=== PATIENT | female | born 1940 | race Caucasian/White ===

== ENCOUNTER 2021-08-12 00:23 | Emergency (ER) | payer MEDICARE, OTHER ==
[~2021-08-12] VITALS: Ht 162.6 cm; Wt 73.0 kg
[~2021-08-12 00:23] MED LIST: ASPI-1073 PO; BUDE6HFA IH; EZET1TAB6 PO; ISOS1POW PO; OMEP20CA4 PO; PREDNISONE PO
[2021-08-12] MEDS ORDERED: ACETAMINOPHEN WITH CODEINE 300/30MG TABLET PO STA (00:48)
[2021-08-12] MEDS ORDERED: ONDANSETRON 4MG ODT PO STA ×2 (00:48→06:35)
[2021-08-12] MEDS ORDERED: SODIUM CHLORIDE 0.9% 1,000 ML IV ONE (01:00)
[2021-08-12 01:33] LABS: BASOPHILS % 0.4 % (0.0-2.0); EOSINOPHILS % 2.6 % (0.0-5.0); HEMATOCRIT. 34.9 % (36.0-48.0); HEMOGLOBIN. 11.7 g/dL (12.0-16.0); LYMPHOCYTES % 29.4 % (20.0-50.0); MEAN CORPUSCULAR HEMOGLOBIN 28.1 pg (28.0-32.0); MEAN CORPUSCULAR VOLUME 83.9 fL (81.0-99.0); MONOCYTES % 6.1 % (2.0-8.0); NEUTROPHILS % 61.5 % (40.0-76.0); PLATELET 238 x1000/uL (130-400); RED BLOOD CELL COUNT 4.16 mill/uL (4.2-5.4); RED CELL DISTRIBUTION WIDTH 13.1 % (11.6-14.6)
[2021-08-12 01:54] LABS: CHLORIDE 104 mEq/L (98-107)
[2021-08-12] MEDS ORDERED: IOHEXOL-300 100 ML BOTTLE ONE (08:25)
[2021-08-12] MEDS ORDERED: KETOROLAC 15MG/ML VIAL IV ONE (08:30)
[2021-08-12 08:44] VITALS: BP 106/84
== END 2021-08-12 09:24 | disposition home or self-care (01) ==
LOC: ER 00:23
DX: R10.32 Left lower quadrant pain (principal); E78.00 Pure hypercholesterolemia, unspecified; I10 Essential (primary) hypertension; Z88.0 Allergy status to penicillin; Z88.8 Allergy status to other drugs, medicaments and biological substances; Z86.79 Personal history of other diseases of the circulatory system
CPT/HCPCS: 36415; 74177; 80053; 83605; 83690; 85025; 93005; 96361; 96374; 99285; J1885; J7030; Q0162; Q9967

== ENCOUNTER 2022-01-12 18:16 | Emergency (ER) | payer OTHER ==
[~2022-01-12] VITALS: Ht 167.6 cm; Wt 90.0 kg
[2022-01-12] MEDS ORDERED: SODIUM CHLORIDE 0.9% 1,000 ML IV ONE (19:00)
[2022-01-12 19:04] LABS: CHLORIDE 105 mEq/L (98-107)
[2022-01-12 19:07] LABS: PROTHROMBIN TIME 10.3 sec (9.6-11.0)
[2022-01-12] MEDS ORDERED: ESMOLOL 2500MG PREMIX 250 ML IV ONE (19:15)
[2022-01-12 19:20] LABS: BASOPHILS % 0.3 % (0.0-2.0); EOSINOPHILS % 1.8 % (0.0-5.0); HEMATOCRIT. 39.2 % (36.0-48.0); HEMOGLOBIN. 13.2 g/dL (12.0-16.0); LYMPHOCYTES % 38.7 % (20.0-50.0); MEAN CORPUSCULAR HEMOGLOBIN 28.8 pg (28.0-32.0); MEAN CORPUSCULAR VOLUME 85.6 fL (81.0-99.0); MEAN PLATELET VOLUME 8.4 fl (7.4-10.4); MONOCYTES % 5.3 % (2.0-8.0); NEUTROPHILS % 53.9 % (40.0-76.0); PLATELET 252 x1000/uL (130-400); RED BLOOD CELL COUNT 4.57 mill/uL (4.2-5.4); RED CELL DISTRIBUTION WIDTH 13.2 % (11.6-14.6)
[2022-01-12] MEDS ORDERED: IOHEXOL-350 100 ML BOTTLE ONE (20:12)
[2022-01-12 21:17] LABS: CLARITY URINE CLEAR (CLEAR); COLOR URINE YELLOW (YELLOW); KETONES URINE NEGATIVE (NEGATIVE); LEUKOCYTE ESTERASE URINE NEGATIVE (NEGATIVE); NITRITE URINE NEGATIVE (NEGATIVE); OCCULT BLOOD URINE NEGATIVE (NEGATIVE); PROTEIN URINE NEGATIVE (NEGATIVE); SPECIFIC GRAVITY URINE 1.042 (1.005-1.030)
[2022-01-12 22:00] VITALS: BP 148/80
== END 2022-01-12 22:45 | disposition home or self-care (01) ==
LOC: ER 18:16
DX: R10.84 Generalized abdominal pain (principal); I10 Essential (primary) hypertension; E78.00 Pure hypercholesterolemia, unspecified; Z98.890 Other specified postprocedural states; Z88.5 Allergy status to narcotic agent; Z88.0 Allergy status to penicillin
CPT/HCPCS: 36415; 71275; 74174; 80053; 81003; 83690; 85025; 85610; 85730; 86850; 86900; 86901; 93005; 96360; 96361; 99285; J3490; J7030; Q9967